=== PATIENT | male | born 1950 | race Caucasian/White ===

== ENCOUNTER 2023-06-12 15:57 | Emergency (ER) | payer MEDICARE, OTHER, SELFPAY ==
[2023-06-12] VITALS (20 sets, daily range): BP systolic 90–125; BP diastolic 59–81; PULSE 94–108; RESP 15–27; TEMP 37–37.1; O2SAT 88–97; BMI 23.1
--- NOTE | 2023-06-12 16:07 | CT_ITS ---
The [address] [address] Patient Name: ALFRED POOL MRN: [id number] date: 1950 Sex: M Assigned Patient Location: ER Current Patient Location: ER Accession/Order Number: [id number] Exam Date: 06/12/2023 16:30 Report Date: 06/12/2023 17:15 At the request of: SIRIA KIDD Procedure: CT head/brain wo con CT head/brain wo con, CT cervical spine wo con, 06/12/2023 4:30 PM EST INDICATION: fall COMPARISON: There is no appropriate prior study for comparison. TECHNIQUE: Axial images of 3 mm are obtained from the base of the skull to vertex completed with Axial images of 2 mm are obtained from base of skull to T2 without contrast. Dose reduction techniques were achieved by using automated exposure control and/or adjustment of mA and/or kV according to patient size and/or use of iterative reconstruction technique. FINDINGS: There is status post left frontal cranioplasty with postoperative changes and fluid collection externally measuring approximately 5.2 x 1.2 cm. Left frontal encephalomalacia is noted likely due to prior intervention. The cerebral and cerebellar sulci as well as ventricular system are appropriate for age. There is no intracranial mass, mass effect, midline shift, intra or extra-axial fluid collection. No acute territorial infarction or hemorrhage is noted. Periventricular and centrum semiovale hypodensities are most likely consistent with microvascular ischemic changes. The visualized portions of orbits, mastoid air cells as well as paranasal sinuses are unremarkable. There is no suspicious osteolytic or osteoblastic lesion. No acute fracture or dislocation is noted. Multilevel degenerative changes of cervical spine are noted. Right upper lobe 1.9 cm spiculated lesion is noted. CT/CT head/brain wo con IMPRESSION: No acute intracranial process is identified. No acute fracture. Right upper lobe spiculated lesion suspicious for malignancy versus scar. A CT of the chest is recommended for further evaluation. Electronically authenticated by: PETTY FALL Date: 06/12/2023 17:15
--- NOTE | 2023-06-12 16:07 | CT_ITS ---
The [address] [address] Patient Name: ALFRED POOL MRN: [id number] date: 1950 Sex: M Assigned Patient Location: ER Current Patient Location: ER Accession/Order Number: [id number] Exam Date: 06/12/2023 16:30 Report Date: 06/12/2023 17:15 At the request of: SIRIA KIDD Procedure: CT cervical spine wo con CT head/brain wo con, CT cervical spine wo con, 06/12/2023 4:30 PM EST INDICATION: fall COMPARISON: There is no appropriate prior study for comparison. TECHNIQUE: Axial images of 3 mm are obtained from the base of the skull to vertex completed with Axial images of 2 mm are obtained from base of skull to T2 without contrast. Dose reduction techniques were achieved by using automated exposure control and/or adjustment of mA and/or kV according to patient size and/or use of iterative reconstruction technique. FINDINGS: There is status post left frontal cranioplasty with postoperative changes and fluid collection externally measuring approximately 5.2 x 1.2 cm. Left frontal encephalomalacia is noted likely due to prior intervention. The cerebral and cerebellar sulci as well as ventricular system are appropriate for age. There is no intracranial mass, mass effect, midline shift, intra or extra-axial fluid collection. No acute territorial infarction or hemorrhage is noted. Periventricular and centrum semiovale hypodensities are most likely consistent with microvascular ischemic changes. The visualized portions of orbits, mastoid air cells as well as paranasal sinuses are unremarkable. There is no suspicious osteolytic or osteoblastic lesion. No acute fracture or dislocation is noted. Multilevel degenerative changes of cervical spine are noted. Right upper lobe 1.9 cm spiculated lesion is noted. CT/CT cervical spine wo con IMPRESSION: No acute intracranial process is identified. No acute fracture. Right upper lobe spiculated lesion suspicious for malignancy versus scar. A CT of the chest is recommended for further evaluation. Electronically authenticated by: PETTY FALL Date: 06/12/2023 17:15
--- NOTE | 2023-06-12 16:14 | ECG_ITS ---
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
--- NOTE | 2023-06-12 16:31 | ED_ITS ---
HPI - Fall General Chief Complaint: Fall Stated Complaint: FALL-HEAD INJURY Time Seen by Provider: 06/12/23 16:07 Source: patient Mode of arrival: ambulance Limitations: no limitations History of Present Illness HPI Narrative: 72-year-old male presents to the emergency room by squad. Patient was a fall from home. Patient was discharged home from the physical therapist facility at [facility] yesterday. Caregivers were caring for him at home today when patient stood and leaned forward and fell. He did not strike his head or lose consciousness. Patient is a recent craniotomy patient recovering. He had a history of lung cancer with metastases to the brain. In March 2023 he had a partial craniotomy of the tumor. In May the area in the brain went to emergency room became infected. Patient's been treated at [facility] for the last several weeks due to that infection and that was transferred to the physical therapy facility and discharged from their facility yesterday. He does have an IV port continues to receive IV vancomycin at home. he is not febrile. This was an accidental fall at home.She is alert and oriented at his baseline. Related Data Allergies Allergy/AdvReac Type Severity Reaction Status Date / Time No Known Drug Allergies Allergy Verified 06/12/23 16:05 Review of Systems ROS Narrative All Systems are negative except as noted/marked.All systems reviewed and otherwise negative Exam Narrative Exam Narrative: P Nurses note and vital signs reviewed and patient is not hypoxic. General: The patient appears well and in no apparent distress. Patient is resting comfortably on cart. Skin: Warm, dry, no pallor noted. Right cheek, facial abrasion Head: Normocephalic, atraumatic healing scar across the parietal region of his scalp Eye: Normal conjunctiva, no drainage, EOMI. PERRL Ears, Nose, Mouth, and Throat: oral mucosa is moist. Nares patent. Mouth without vesicles. Ear canals patent. Tm's without Erythema Cardiovascular: Regular Rate and Rhythm Respiratory: Patient is in no distress, no accessory muscle use, lungs are clear to auscultation, no wheezing, rales or rhonchi Back: non-tender, no CVA tenderness bilaterally to percussion. GI: Normal bowel sounds, no tenderness to palpation, no masses appreciated. No rebound, guarding, or rigidity noted. Musculoskeletal: The patient has no evidence of calf tenderness, no pitting edema, symmetrical pulses noted bilaterally Neurological: Oriented to place and self at his baseline Psychiatric: Cooperative Constitutional Vital Signs, click to edit/add: Last Vital Signs Temp 98.6 F 06/12/23 16:03 Pulse 96 H 06/12/23 17:40 Resp 20 06/12/23 17:40 BP 112/81 06/12/23 17:30 Pulse Ox 95 06/12/23 17:40 O2 Del Method Room Air 06/12/23 16:29 Course Vital Signs Vital signs: Vital Signs Blood Pressure 90/70 06/12/23 16:00 Temperature 98.6 F 06/12/23 16:03 Pulse Rate 96 H 06/12/23 17:40 Respiratory Rate 20 06/12/23 17:40 Blood Pressure 112/81 06/12/23 17:30 Pulse Oximetry 95 06/12/23 17:40 Oxygen Delivery Method Room Air 06/12/23 16:29 MDM - Fall MDM Narrative Medical decision making narrative: Patient presents emergency room by squad after a fall at home. Caregivers were helping him stand he fell forward. He did not strike his head. Patient brought here for evaluation recent craniotomy and an infection in the post craniotomy region of his brain. He was discharged home yesterday from rehab facility. Patient and family members are here. Patient is alert and oriented at his [facility] After his fall today. He is eating and drinking well here in emergency room IV fluids have been given here. Labwork, head and neck CT were read and showed nothing acute. He is currently seeing oncology in [place]. He has an appointment with them on Wednesday. Family members believe he can be discharged back to home, he does have 24-hour care at home while he is recovering. Patient's eating a meal here and looks well. He does want to go home. Family members agree. Differential Diagnosis Differential diagnosis: Likely syncope Medical Records Attestation: I reviewed the patient's medical records. Lab Data Attestation: I reviewed the patient's lab results. Labs: Lab Results 06/12/23 Range/Units 16:50 WBC 8.3 (4.0-11.0) 10^3/uL RBC 3.95 L (4.70-6.10) 10^6/uL Hgb 11.6 L (14.0-18.0) g/dL Hct 36.0 L (42.0-54.0) % MCV 91.1 (80.0-94.0) fL MCH 29.4 (25.9-34.0) pg MCHC 32.2 (29.9-35.2) g/dL RDW 18.0 H (11.0-15.0) % Plt Count 86 L (150-450) 10^3/uL MPV 9.3 L (9.5-13.5) fL Seg Neuts % (Manual) 72.0 Band Neutrophils % 4.0 (0-5) % Lymphocytes % (Manual) 18.0 L (20.5-60.0) % Monocytes % (Manual) 4.0 (1.7-12.0) % Eosinophils % (Manual) 1.0 (0.9-7.0) % Basophils % (Manual) 1.0 (0.2-2.0) % Neutrophils # (Manual) 5.97 (1.4-6.5) 10^3/uL Band Neutrophils # 0.3 (0.0-0.3) 10^3/uL Lymphocytes # (Manual) 1.49 (1.20-3.80) 10^3/uL Monocytes # (Manual) 0.33 (0.30-0.80) 10^3/uL Eosinophils # (Manual) 0.08 (0.00-0.70) 10^3/uL Basophils # (Manual) 0.08 (0.00-0.10) 10^3/uL Anisocytosis 2+ Sodium 138 (136-145) mmol/L Potassium 3.8 (3.5-5.1) mmol/L Chloride 103 (98-107) mmol/L Carbon Dioxide 24.7 (21.0-32.0) mmol/L Anion Gap 14.1 BUN 13.0 (7.0-18.0) mg/dL Creatinine 1.06 (0.70-1.30) mg/dL Est GFR ( Amer) >60 (>=60) Est GFR (Non-Af Amer) >60 (>=60) BUN/Creatinine Ratio 12.3 Glucose 121 H (74-106) mg/dL Calcium 8.3 L (8.5-10.1) mg/dL Total Bilirubin 1.0 (0.2-1.0) mg/dL AST <5 L (15-37) U/L ALT 48 (16-63) U/L Alkaline Phosphatase 94 (46-116) U/L Total Protein 5.5 L (6.4-8.2) g/dL Albumin 2.6 L (3.4-5.0) g/dL Globulin 2.9 g/dL Albumin/Globulin Ratio 0.[address] scan - head: My impression: INDICATION: fall COMPARISON: There is no appropriate prior study for comparison. TECHNIQUE: Axial images of 3 mm are obtained from the base of the skull to vertex completed with Axial images of 2 mm are obtained from base of skull to T2 without contrast. Dose reduction techniques were achieved by using automated exposure control and/or adjustment of mA and/or kV according to patient size and/or use of iterative reconstruction technique. FINDINGS: There is status post left frontal cranioplasty with postoperative changes and fluid collection externally measuring approximately 5.2 x 1.2 cm. Left frontal encephalomalacia is noted likely due to prior intervention. The cerebral and cerebellar sulci as well as ventricular system are appropriate for age. There is no intracranial mass, mass effect, midline shift, intra or extra-axial fluid collection. No acute territorial infarction or hemorrhage is noted. Periventricular and centrum semiovale hypodensities are most likely consistent with microvascular ischemic changes. The visualized portions of orbits, mastoid air cells as well as paranasal sinuses are unremarkable. There is no suspicious osteolytic or osteoblastic lesion. No acute fracture or dislocation is noted. Multilevel degenerative changes of cervical spine are noted. Right upper lobe 1.9 cm spiculated lesion is noted. IMPRESSION: No acute intracranial process is identified. No acute fracture. Right upper lobe spiculated lesion suspicious for malignancy versus scar. A CT of the chest is recommended for further evaluation. Electronically authenticated by: PETTY FALL Date: 06/12/2023 17:15 ECG Data Attestation: ?I have reviewed the pertinent ECG results. Interpretation: EKG shows normal sinus rhythm rate 99 bpm QR interval 104 ms QR duration 86 ms,no STEMI Discharge Plan Discharge Chief Complaint: Fall Clinical Impression: Abrasion of face, Fall Patient Disposition: Home, Self-Care Time of Disposition Decision: 18:16 Condition: Good Instructions: Abrasion (ED), Fall Prevention (ED) Stand Alone Forms: Portal Instructions Referrals: Physician,Non-Staff, MD [Primary Care Provider] - 1 week
[2023-06-12 17:00] LABS: Hemoglobin 11.6 g/dL (14.0-18.0); Mean Corpuscular HGB Conc 32.2 g/dL (29.9-35.2); Mean Corpuscular Hemoglobin 29.4 pg (25.9-34.0); Mean Corpuscular Volume 91.1 fL (80.0-94.0); Mean Platelet Volume 9.3 fL (9.5-13.5); Platelet Count 86 10^3/uL (150-450); Red Blood Count 3.95 10^6/uL (4.70-6.10); White Blood Count 8.3 10^3/uL (4.0-11.0)
[2023-06-12 17:16] LABS: Alanine Aminotransferase 48 U/L (16-63); Albumin Globulin Ratio 0.9; Albumin Level 2.6 g/dL (3.4-5.0); Alkaline Phosphatase 94 U/L (46-116); Anion Gap 14.1; Aspartate Amino Transferase <5 U/L (15-37); BUN Creatinine Ratio 12.3; Band Neutrophils Absolute 0.3 10^3/uL (0.0-0.3); Basophils Abs Manual 0.08 10^3/uL (0.00-0.10); Calcium 8.3 mg/dL (8.5-10.1); Carbon Dioxide 24.7 mmol/L (21.0-32.0); Chloride 103 mmol/L (98-107); Estimated GFR (African America >60 (>=60); Estimated GFR (Non-African Ame >60 (>=60); Globulin 2.9 g/dL; Glucose 121 mg/dL (74-106); Lymphocytes Absolute Manual 1.49 10^3/uL (1.20-3.80); Monocytes Absolute Manual 0.33 10^3/uL (0.30-0.80); Potassium 3.8 mmol/L (3.5-5.1); Sodium 138 mmol/L (136-145); Total Protein 5.5 g/dL (6.4-8.2)
[2023-06-12 17:17] LABS: Anisocytosis 2+; Eosinophils Absolute Manual 0.08 10^3/uL (0.00-0.70); Segmented Neut Absolute Manual 5.97 10^3/uL (1.4-6.5)
[2023-06-12] MEDS: DEXAMETHASONE SOD PHOS 10 MG/ML VIAL 2 MG IV (17:21)
[2023-06-12] MEDS: RIVAROXABAN 10 MG TABLET 20 MG PO (17:21)
[2023-06-12] MEDS: 0.9 % SODIUM CHLORIDE 1,000 ML 1000 ML IV (17:49)
[2023-06-12] MEDS: ONDANSETRON PF 4 MG/2 ML VIAL IV (17:49)
== END 2023-06-12 19:06 | disposition home or self-care (01) ==
PROVIDERS: Physician Assistant; Emergency Provider Emergency Medicine
DX: S00.81XA Abrasion of other part of head, initial encounter (principal); W18.30XA Fall on same level, unspecified, initial encounter; Z85.118 Personal history of other malignant neoplasm of bronchus and lung; Z85.841 Personal history of malignant neoplasm of brain; Z98.890 Other specified postprocedural states
CPT/HCPCS: 36415; 70450; 72125; 80053; 85027; 93005; 96374; 96375; 99285; J1100

== ENCOUNTER 2024-02-10 11:58 | Emergency (ER) | payer MEDICARE, OTHER, SELFPAY ==
[2024-02-10] VITALS (106 sets, daily range): BP systolic 68–112; BP diastolic 40–79; PULSE 103–138; TEMP 36.4; O2SAT 88–100
--- NOTE | 2024-02-10 12:01 | XR_ITS ---
The [address] [address] Patient Name: ALFRED POOL MRN: [id number] date: 1950 Sex: M Assigned Patient Location: ER Current Patient Location: ER Accession/Order Number: [id number] Exam Date: 02/10/2024 12:38 Report Date: 02/10/2024 13:31 At the request of: JASON CRAIG Procedure: XR chest 1V EXAMINATION: XR chest 1V HISTORY: weak COMPARISON: No relevant comparison available. TECHNIQUE: AP portable FINDINGS: LUNGS: No significant pulmonary parenchymal abnormalities. Low lung volumes VASCULATURE: No increased pulmonary vasculature. PLEURA: No pneumothorax, effusion, or pleural thickening. CARDIAC: No cardiomegaly or cardiac silhouette abnormality. MEDIASTINUM: No visible mass or adenopathy. Left single lumen Port-A-Cath tip projects over the right atrium BONES: No fracture or visible bone lesion. OTHER: Negative. XR/XR chest 1V IMPRESSION: Low volume exam, clear lungs Electronically authenticated by: VALENTINA MASON Date: 02/10/2024 13:31
--- NOTE | 2024-02-10 12:01 | CT_ITS ---
The [address] [address] Patient Name: ALFRED POOL MRN: [id number] date: 1950 Sex: M Assigned Patient Location: ER Current Patient Location: ER Accession/Order Number: [id number] Exam Date: 02/10/2024 12:38 Report Date: 02/10/2024 13:30 At the request of: JASON CRAIG Procedure: CT head/brain wo con EXAMINATION: CT head/brain wo con, 02/10/2024 12:38 PM EDT HISTORY: weak, hx lung cancer COMPARISON: 06/12/2023 TECHNIQUE: CT scan of the head was performed without IV contrast. CT dose reduction technique was used, including Automated Exposure Control. FINDINGS: BRAIN: Stable left frontal cranioplasty. Interval progression of left frontal encephalomalacia. Moderate white matter hypoattenuation likely chronic small vessel ischemic changes CSF SPACES: No hydrocephalus, subarachnoid hemorrhage, or mass. Appropriate for age. SKULL: No fracture, mass, or other significant visible lesion. SINUSES: No significant mucosal thickening or fluid on the limited views. ORBITS: No appreciable abnormality on the limited views. OTHER: Negative CT/CT head/brain wo con IMPRESSION: Progression of left frontal encephalomalacia Progression of white matter disease likely chronic small vessel ischemic change Electronically authenticated by: VALENTINA MASON Date: 02/10/2024 13:30
--- NOTE | 2024-02-10 12:01 | ECG_ITS ---
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
--- NOTE | 2024-02-10 12:15 | PC.NURSE ---
Patient arrives via EMS after his daughte checked on him and found him still in bed. patient with history of lung cancer, currently on oral chemo, and mets to the brain which were removed with surgery. patient did develop infection after brain surgery. daughter endorses that patient has had diarrhea since january and has been seen at [facility] for this. patient reports he has not eaten today. blood pressure noted to be very low upon arrival, iv fluids started and patient placed in trendelenburg. physician aware of blood pressure.
--- NOTE | 2024-02-10 12:21 | ED.GENADUL1 ---
HPI HPI - General Adult General Chief complaint: Weakness Stated complaint: GENERAL WEAKNESS Time Seen by Provider: 02/10/24 12:00 Source: patient Mode of arrival: ambulance History of Present Illness HPI narrative: 73-year-old male presents for generalized weakness. His daughter went to check on him today and the patient had not been out of bed yet. She seemed weak. He reported that he had been having frequent episodes of diarrhea last night, no blood. The daughter states that it was foul-smelling. He has been having some issues with diarrhea on and off for weeks or months. He has a history of lung cancer with metastasis. He did not have fever or vomiting. The daughter called the paramedics and they transported him here. Related Data Allergies Allergy/AdvReac Type Severity Reaction Status Date / Time No Known Drug Allergies Allergy Verified 06/12/23 16:05 Opioid HPI Opioid Management Most Recent Opioid Data: No Data to Display Review of Systems ROS Narrative A ten point review of systems is negative except as noted above. Exam Narrative Exam Narrative: Nurses note and vital signs reviewed and patient is not hypoxic. General: The patient appears well and in no apparent distress. Patient is resting comfortably on cart. Skin: Warm, dry, no pallor noted. There is no rash noted. Head: Normocephalic, atraumatic Eye: Normal conjunctiva, no drainage Ears, Nose, Mouth, and Throat: oral mucosa is moist. Nares patent. Cardiovascular: Regular Rate and Rhythm, tachycardic Respiratory: Patient is in no distress, no accessory muscle use, lungs are clear to auscultation, no wheezing, rales or rhonchi GI: Soft and nondistended. He does not seem to have tenderness on palpation. Musculoskeletal: The patient has no evidence of calf tenderness, no pitting edema, symmetrical pulses noted bilaterally Neurological: Awake alert and oriented Psychiatric: Cooperative Constitutional Vital Signs, click to edit/add: Last Vital Signs Temp 97.6 F 02/10/24 12:00 Pulse 109 H 02/10/24 18:34 Resp 21 H 02/10/24 18:34 BP 102/72 02/10/24 18:34 Pulse Ox 99 02/10/24 18:34 O2 Del Method Nasal Cannula 02/10/24 12:00 O2 Flow Rate 2 02/10/24 12:00 Course Vital Signs Vital signs: Vital Signs Temperature 97.6 F 02/10/24 12:00 Pulse Rate 138 H 02/10/24 12:00 Respiratory Rate 22 H 02/10/24 12:00 Blood Pressure 78/40 L 02/10/24 12:00 Pulse Oximetry 92 L 02/10/24 12:00 Oxygen Delivery Method Nasal Cannula 02/10/24 12:00 Oxygen Delivery Flow Rate 2 02/10/24 12:00 Temperature 97.6 F 02/10/24 12:00 Pulse Rate 109 H 02/10/24 18:34 Respiratory Rate 21 H 02/10/24 18:34 Blood Pressure 102/72 02/10/24 18:34 Pulse Oximetry 99 02/10/24 18:34 Oxygen Delivery Method Nasal Cannula 02/10/24 12:00 Oxygen Delivery Flow Rate 2 02/10/24 12:00 Medical Decision Making MDM Narrative Medical decision making narrative: The patient presented with hypotension. It appears to be secondary to volume depletion, his BUN and creatinine are elevated above baseline. WBC also elevated and urinalysis suggest the possibility of UTI. Chest x-ray shows no infiltrate. CT of the abdomen is pending and the patient is signed out to Dr. Rinaldi at change of shift. Initial lactic acid was 12, repeat was 7. He was given 3 L of IV fluid and his blood pressure has improved into the 90s systolic range. It was initially in the 70s. At approximately 6:40 PM the patient had a bowel movement here which was bloody. That is the first time that this has happened. He had had diarrhea at home without blood and his daughter had been there and seen the diarrhea and there was no blood. Differential Diagnosis Differential Diagnosis: Volume depletion, AZRA, UTI, pneumonia, intra-abdominal infection Lab Data Lab results reviewed: Yes I reviewed the patient's lab results Labs: Lab Results 02/10/24 02/10/24 02/10/24 Range/Units 12:05 12:20 14:29 WBC 27.9 H (4.0-11.0) 10^3/uL RBC 5.76 (4.70-6.10) 10^6/uL Hgb 16.4 (14.0-18.0) g/dL Hct 51.4 (42.0-54.0) % MCV 89.2 (80.0-94.0) fL MCH 28.5 (25.9-34.0) pg MCHC 31.9 (29.9-35.2) g/dL RDW 14.7 (11.0-15.0) % Plt Count 219 (150-450) 10^3/uL MPV 12.7 (9.5-13.5) fL Seg Neuts % (Manual) 74.0 (43.0-75.0) Band Neutrophils % 9.0 H (0-5) % Lymphocytes % (Manual) 8.0 L (20.5-60.0) % Monocytes % (Manual) 8.0 (1.7-12.0) % Eosinophils % (Manual) 1.0 (0.9-7.0) % Basophils % (Manual) 0.0 L (0.2-2.0) % Neutrophils # (Manual) 20.64 H (1.4-6.5) 10^3/uL Band Neutrophils # 2.5 H (0.0-0.3) 10^3/uL Lymphocytes # (Manual) 2.23 (1.20-3.80) 10^3/uL Monocytes # (Manual) 2.23 H (0.30-0.80) 10^3/uL Eosinophils # (Manual) 0.27 (0.00-0.70) 10^3/uL Basophils # (Manual) 0.00 (0.00-0.10) 10^3/uL Sodium 143 (136-145) mmol/L Potassium 2.4 L* (3.5-5.1) mmol/L Chloride 110 H (98-107) mmol/L Carbon Dioxide 14.5 L (21.0-32.0) mmol/L Anion Gap 20.9 BUN 20.0 H (7.0-18.0) mg/dL Creatinine 1.91 H (0.70-1.30) mg/dL Est GFR ( Amer) 42 L (>=60) Est GFR (Non-Af Amer) 35 L (>=60) BUN/Creatinine Ratio 10.5 Glucose 206 H (74-106) mg/dL Lactate 12.0 H* (0.4-2.0) mmol/L Calcium 7.1 L (8.5-10.1) mg/dL Troponin I High Sens 24.8 (4.0-76.1) pg/mL Urine Color Dk yellow (YELLOW) Urine Clarity Clear (CLEAR) Urine pH Color interference A (5.0-9.0) Ur Specific [place] >=1.030 A (1.005-1.025) Urine Protein Color interference A (NEG/TRACE) mg/dL Urine Glucose (UA) Color interference A (NEGATIVE) mg/dL Urine Ketones Color interference A (NEGATIVE) mg/dL Urine Occult Blood Color interference A (NEGATIVE) Urine Nitrite Color interference A (NEGATIVE) Urine Bilirubin Color interference A (NEGATIVE) Urine Urobilinogen Color interference A (0.2-1.0) EU/dL Ur Leukocyte Esterase Color interference A (NEGATIVE) Urine RBC 20-50 A (0-2) #/HPF Urine WBC 5-10 A (NONE SEEN) #/HPF Ur Squamous Epith Cells Few A (NONE/RARE) #/LPF Urine Crystals Seen A (None Seen) #/HPF Calcium Oxalate Crystal Many Urine Bacteria Small A (NONE SEEN) #/HPF Urine Casts Seen A (NONE SEEN) #/LPF Hyaline Casts Moderate Fine Granular Casts Rare Urine Mucus Large A (NONE SEEN) Ur Culture Indicated? Yes 02/10/24 Range/Units 16:50 WBC (4.0-11.0) 10^3/uL RBC (4.70-6.10) 10^6/uL Hgb (14.0-18.0) g/dL Hct (42.0-54.0) % MCV (80.0-94.0) fL MCH (25.9-34.0) pg MCHC (29.9-35.2) g/dL RDW (11.0-15.0) % Plt Count (150-450) 10^3/uL MPV (9.5-13.5) fL Seg Neuts % (Manual) (43.0-75.0) Band Neutrophils % (0-5) % Lymphocytes % (Manual) (20.5-60.0) % Monocytes % (Manual) (1.7-12.0) % Eosinophils % (Manual) (0.9-7.0) % Basophils % (Manual) (0.2-2.0) % Neutrophils # (Manual) (1.4-6.5) 10^3/uL Band Neutrophils # (0.0-0.3) 10^3/uL Lymphocytes # (Manual) (1.20-3.80) 10^3/uL Monocytes # (Manual) (0.30-0.80) 10^3/uL Eosinophils # (Manual) (0.00-0.70) 10^3/uL Basophils # (Manual) (0.00-0.10) 10^3/uL Sodium (136-145) mmol/L Potassium (3.5-5.1) mmol/L Chloride (98-107) mmol/L Carbon Dioxide (21.0-32.0) mmol/L Anion Gap BUN (7.0-18.0) mg/dL Creatinine (0.70-1.30) mg/dL Est GFR ( Amer) (>=60) Est GFR (Non-Af Amer) (>=60) BUN/Creatinine Ratio Glucose (74-106) mg/dL Lactate 7.1 H* (0.4-2.0) mmol/L Calcium (8.5-10.1) mg/dL Troponin I High Sens (4.0-76.1) pg/mL Urine Color (YELLOW) Urine Clarity (CLEAR) Urine pH (5.0-9.0) Ur Specific [place] (1.005-1.025) Urine Protein (NEG/TRACE) mg/dL Urine Glucose (UA) (NEGATIVE) mg/dL Urine Ketones (NEGATIVE) mg/dL Urine Occult Blood (NEGATIVE) Urine Nitrite (NEGATIVE) Urine Bilirubin (NEGATIVE) Urine Urobilinogen (0.2-1.0) EU/dL Ur Leukocyte Esterase (NEGATIVE) Urine RBC (0-2) #/HPF Urine WBC (NONE SEEN) #/HPF Ur Squamous Epith Cells (NONE/RARE) #/LPF Urine Crystals (None Seen) #/HPF Calcium Oxalate Crystal Urine Bacteria (NONE SEEN) #/HPF Urine Casts (NONE SEEN) #/LPF Hyaline Casts Fine Granular Casts Urine Mucus (NONE SEEN) Ur Culture Indicated? Imaging Data Chest x-ray: Radiologist's impression: ITS Impressions Chest X-Ray 02/10/24 12:01 IMPRESSION: Low volume exam, clear lungs Electronically authenticated by: VALENTINA MASON Date: 02/10/2024 13:[address] 02/10/24 12:01 IMPRESSION: Progression of left frontal encephalomalacia Progression of white matter disease likely chronic small vessel ischemic change Electronically authenticated by: VALENTINA MASON Date: 02/10/2024 13:30 ECG Data Attestation: I personally reviewed and interpreted this ECG as follows: (EKG on my interpretation shows sinus tachycardia with a rate of 123.) Critical Care Time Critical Care Time Critical Care Time: Yes Total Critical Care Time: 95 Attestation: Due to the high probability of sudden and clinically significant deterioration in the patient's condition he/she required the highest level of my preparedness to intervene urgently I provided critical care time including documentation time, medication orders and management, reevaluation, vital sign assessment, ordering and reviewing of lab tests, ordering and reviewing of x-ray studies, and admission orders. Aggregate critical care time is 95 minutes including only time during which I was engaged in work directly related to his/her care and did not include time spent treating other patients simultaneously. Discharge Plan Discharge Patient Disposition: Still a Patient
[2024-02-10 12:43] LABS: Hematocrit 51.4 % (42.0-54.0); Hemoglobin 16.4 g/dL (14.0-18.0); Mean Corpuscular HGB Conc 31.9 g/dL (29.9-35.2); Mean Corpuscular Hemoglobin 28.5 pg (25.9-34.0); Mean Corpuscular Volume 89.2 fL (80.0-94.0); Mean Platelet Volume 12.7 fL (9.5-13.5); Platelet Count 219 10^3/uL (150-450); Red Blood Count 5.76 10^6/uL (4.70-6.10); Red Cell Distribution Width 14.7 % (11.0-15.0); White Blood Count 27.9 10^3/uL (4.0-11.0)
[2024-02-10] MEDS: 0.9 % SODIUM CHLORIDE 1,000 ML 1000 ML IV ×2 (12:55→13:28)
[2024-02-10 12:57] LABS: Anion Gap 20.9; BUN Creatinine Ratio 10.5; Calcium 7.1 mg/dL (8.5-10.1); Carbon Dioxide 14.5 mmol/L (21.0-32.0); Chloride 110 mmol/L (98-107); Estimated GFR (African America 42 (>=60); Estimated GFR (Non-African Ame 35 (>=60); Glucose 206 mg/dL (74-106); Sodium 143 mmol/L (136-145); Troponin I High Sensitivity 24.8 pg/mL (4.0-76.1)
[2024-02-10 13:01] LABS: Potassium 2.4 mmol/L (3.5-5.1)
[2024-02-10 13:08] LABS: Band Neutrophils Absolute 2.5 10^3/uL (0.0-0.3); Eosinophils Absolute Manual 0.27 10^3/uL (0.00-0.70); Lymphocytes Absolute Manual 2.23 10^3/uL (1.20-3.80); Monocytes Absolute Manual 2.23 10^3/uL (0.30-0.80); Segmented Neut Absolute Manual 20.64 10^3/uL (1.4-6.5)
[2024-02-10] MEDS: POTASSIUM CHLORIDE 40 MEQ in 0.9 % SODIUM CHLORIDE 250 ML 67.5 MEQ IV (13:37)
[2024-02-10 15:16] LABS: Clarity Urine CLEAR (CLEAR); Specific Gravity Urine >=1.030 (1.005-1.025)
[2024-02-10 15:17] LABS: Color Urine DK YELLOW (YELLOW)
[2024-02-10 15:18] LABS: Bilirubin Urine COLOR INTERFERENCE (NEGATIVE); Blood Urine COLOR INTERFERENCE (NEGATIVE); Glucose Urine UA COLOR INTERFERENCE mg/dL (NEGATIVE); Ketones Urine COLOR INTERFERENCE mg/dL (NEGATIVE); Leukocyte Esterase Urine COLOR INTERFERENCE (NEGATIVE); Nitrite Urine COLOR INTERFERENCE (NEGATIVE); Protein Urine COLOR INTERFERENCE mg/dL (NEG/TRACE); Urobilinogen Urine COLOR INTERFERENCE EU/dL (0.2-1.0); pH Urine COLOR INTERFERENCE (5.0-9.0)
[2024-02-10] MEDS: LIDOCAINE 2% JELLY 10 ML UR (15:20)
[2024-02-10 15:43] LABS: RBC Urine 20-50 #/HPF (0-2)
[2024-02-10 15:46] LABS: Bacteria Urine SMALL #/HPF (NONE SEEN); Mucus Urine LARGE (NONE SEEN); Squamous Epithelial Cell Urine FEW #/LPF (NONE/RARE)
[2024-02-10 15:47] LABS: Calcium Oxalate Crystals Urine MANY; Cast Seen? SEEN #/LPF (NONE SEEN); Crystals Seen? Seen #/HPF (None Seen); Fine Granular Casts Urine RARE; Hyaline Casts Urine MODERATE
[2024-02-10 15:48] LABS: Urine Culture Indicated YES
[2024-02-10] MEDS: 0.9 % SODIUM CHLORIDE 1,000 ML 200 ML IV ×2 (15:52→20:59)
--- NOTE | 2024-02-10 15:58 | CT_ITS ---
[address] [address] Patient Name: ALFRED POOL MRN: [id number] date: 1950 Sex: M Assigned Patient Location: ER Current Patient Location: .MAIN Accession/Order Number: [id number] Exam Date: 02/10/2024 16:18 Report Date: 02/10/2024 19:55 At the request of: JASON CRAIG Procedure: CT abdomen pelvis w con CT ABDOMEN AND PELVIS WITH CONTRAST: INDICATION: Shortness of breath, weakness. COMPARISON: Chest radiograph 02/10/2024. TECHNIQUE: Helical CT images of the abdomen and pelvis were obtained after the administration of intravenous contrast. Dose reduction techniques were achieved by using automated exposure control and/or adjustment of mA and/or kV according to patient size and/or use of iterative reconstruction technique. FINDINGS: LOWER CHEST: The visualized aortic root is slightly dilated at 4.1 cm. There is mild bibasilar atelectasis. LIVER: There is moderate fatty infiltration. There is a enhancing lesion in the hepatic dome in segment 8 on image 15 series 3 measuring 10 mm. GALLBLADDER AND BILIARY SYSTEM: Normal. SPLEEN: Several calcified granulomas. PANCREAS: Moderate fatty replacement. ADRENAL GLANDS: Severely atrophic bilaterally. KIDNEYS AND URETERS: 6 mm hypodensity in the lower pole of the left kidney suggestive of cysts but too small to characterize. 7 mm hypodensity in the upper pole of the right kidney. 4 mm stone in the upper pole of the right kidney. Mild bilateral perinephric stranding consistent with medical renal disease. There is a 14 mm ill-defined hypodense focus in the upper pole of the right kidney best seen on image 64 series 5 with a somewhat wedge shape suspicious for pyelonephritis or an infarct. There is a similar hypodensity in the upper pole of left kidney on image 63 series 5 measuring 15 mm. 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 There is diffuse atherosclerotic calcification of the aorta, iliac and femoral arteries. RETROPERITONEUM AND LYMPH NODES: Normal, with no lymphadenopathy. GASTROINTESTINAL TRACT/MESENTERY: There is fluid within the small bowel and colon and there is evidence of mild to moderate wall thickening and mucosal hyperenhancement throughout the colon suspicious for colitis. There are small fluid collections proximal to the inguinal canals bilaterally, likely related to previous inguinal hernia repair with mesh plugs. The appendix is not visualized. BLADDER: Maxwell catheter within urinary bladder which is underdistended. REPRODUCTIVE SYSTEM: Normal prostate. BODY WALL: Normal. BONES: There are few ill-defined mixed lytic and sclerotic lesions in the thoracic and lumbar spine. For example there is a lesion at L3 which is lytic centrally with peripheral sclerosis and this measures 12 mm. There is a lytic lesion at T8 with some peripheral sclerosis measuring 11 mm. This is suspicious for metastatic disease. CT/CT abdomen pelvis w con IMPRESSION: 1. Findings consistent with an infectious, inflammatory or ischemic colitis. 2. Ill-defined wedge-shaped hypodense foci within the upper poles of the kidneys bilaterally. Differential diagnosis includes infarcts, polynephritis and less likely masses. Consider follow-up ultrasound. Small hypodensities are also seen in both kidney suggestive of cysts but too small to characterize and there is a small right renal stone. 3. 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 4. Partially visualized ascending thoracic aortic ectasia measuring 4.1 cm in diameter. 5. Enhancing focus in the dome of the liver which may represent a flash filling hemangioma or transient hepatic attenuation difference. Fatty liver is also noted. Consider MRI. 6. Findings suspicious for osseous metastatic disease. Consider follow-up PET/CT. Electronically authenticated by: VALERIA MILLAN Date: 02/10/2024 19:55
[2024-02-10] MEDS: CEFTRIAXONE 1,000 MG in 0.9 % SODIUM CHLORIDE 50 ML 100 MG IV (16:36)
[2024-02-10 17:36] LABS: Lactate/Lactic Acid 7.1 mmol/L (0.4-2.0)
[2024-02-10] MEDS: PANTOPRAZOLE SODIUM 40 MG VIAL IV (19:14)
--- NOTE | 2024-02-10 19:23 | ED_ITS ---
HPI HPI - General Adult General Chief complaint: Weakness Stated complaint: GENERAL WEAKNESS Time Seen by Provider: 02/10/24 12:00 Source: patient Mode of arrival: ambulance History of Present Illness HPI narrative: This 73-year-old male with a history of lung cancer with metastases to the brain who has had craniotomies in the past and is a [facility] patient was signed out to me at shift change. The patient presents for generalized weakness. His daughter went to see him this morning and he was in bed with a large amount of diarrhea in the bed. She denies that there was any blood at that time however while in the emergency department he had an episode of bloody diarrhea. He has been hypotensive while in the emergency department with a markedly elevated white count, markedly elevated lactic acid. 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 Patient was seen and evaluated with family at the bedside. They request transfer to [facility] as the patient is a [facility] patient. They state that he has been having diarrhea for the past month with some nausea and vomiting at times. He was admitted to [facility] at [facility] and kept overnight. At that time he was found to have a pulmonary embolism and was started on blood thinners after being placed on heparin for a bridge period. The patient denies any abdominal pain. His abdomen is soft. He is awake and alert. The family are adamant that he received 12 mg of oral prednisone because if he does not get this he starts to become extremely confused and at times combative. The patient's blood pressure was noted to be in the 70s over 50s after 3 L of normal saline and levophed was ordered and at the bedside but not given as his SBP was maintaining around 100mg. Repeat labs were ordered and his Hb dropped from 16.5 to 13.4 after the IVF. His lactic acid improved from 12 to 7 to 2.4. He did have several additional episodes of bloody diarrhea while in the ED. A call has been placed to [facility] transfer center for emergent transfer at this time. [id number]; Case discussed with [facility] at [facility]. Pt accepted for transfer. Dr Matt Baxter accepting. Critical care time 45 minutes Related Data Home Medications ?Medication ?Instructions ?Recorded ?Confirmed folic acid 1 mg tablet 02/10/24 glimepiride 2 mg tablet mg 02/10/24 omeprazole 40 mg capsule,delayed mg 02/10/24 release osimertinib 80 mg tablet (Tagrisso) 80 mg PO DAILY 02/10/24 02/10/24 prednisone 1 mg tablet mg 02/10/24 prednisone 10 mg tablet mg 02/10/24 quetiapine 25 mg tablet mg 02/10/24 rivaroxaban 20 mg tablet (Xarelto) mg 02/10/24 rosuvastatin 10 mg tablet mg 02/10/24 venlafaxine 37.5 mg mg PO 02/10/24 capsule,extended release 24 hr Allergies Allergy/AdvReac Type Severity Reaction Status Date / Time No Known Drug Allergies Allergy Verified 06/12/23 16:05 Opioid HPI Opioid Management Most Recent Opioid Data: No Data to Display Exam Constitutional Vital Signs, click to edit/add: Last Vital Signs Temp 97.6 F 02/10/24 12:00 Pulse 119 H 02/10/24 23:10 Resp 22 H 02/10/24 23:10 BP 88/76 L 02/10/24 23:00 Pulse Ox 99 02/10/24 23:10 O2 Del Method Nasal Cannula 02/10/24 12:00 O2 Flow Rate 2 02/10/24 12:00 Course Vital Signs Vital signs: Vital Signs Temperature 97.6 F 02/10/24 12:00 Pulse Rate 138 H 02/10/24 12:00 Respiratory Rate 22 H 02/10/24 12:00 Blood Pressure 78/40 L 02/10/24 12:00 Pulse Oximetry 92 L 02/10/24 12:00 Oxygen Delivery Method Nasal Cannula 02/10/24 12:00 Oxygen Delivery Flow Rate 2 02/10/24 12:00 Temperature 97.6 F 02/10/24 12:00 Pulse Rate 119 H 02/10/24 23:10 Respiratory Rate 22 H 02/10/24 23:10 Blood Pressure 88/76 L 02/10/24 23:00 Pulse Oximetry 99 02/10/24 23:10 Oxygen Delivery Method Nasal Cannula 02/10/24 12:00 Oxygen Delivery Flow Rate 2 02/10/24 12:00 Medical Decision Making Lab Data Lab results reviewed: Yes I reviewed the patient's lab results Labs: Lab Results 02/10/24 02/10/24 02/10/24 Range/Units 12:05 12:20 14:29 WBC 27.9 H (4.0-11.0) 10^3/uL RBC 5.76 (4.70-6.10) 10^6/uL Hgb 16.4 (14.0-18.0) g/dL Hct 51.4 (42.0-54.0) % MCV 89.2 (80.0-94.0) fL MCH 28.5 (25.9-34.0) pg MCHC 31.9 (29.9-35.2) g/dL RDW 14.7 (11.0-15.0) % Plt Count 219 (150-450) 10^3/uL MPV 12.7 (9.5-13.5) fL Neut % (Auto) (43.0-75.0) % Lymph % (Auto) (20.5-60.0) % Nance % (Auto) (1.7-12.0) % Eos % (Auto) (0.9-7.0) % Baso % (Auto) (0.2-2.0) % Neut # (Auto) (1.4-6.5) 10^3/uL Lymph # (Auto) (1.2-3.8) 10^3/uL Nance # (Auto) (0.3-0.8) 10^3/uL Eos # (Auto) (0.0-0.7) 10^3/uL Baso # (Auto) (0.0-0.1) 10^3/uL Abs Immat Gran (auto) (0.00-0.03) 10^3/uL Seg Neuts % (Manual) 74.0 (43.0-75.0) Band Neutrophils % 9.0 H (0-5) % Lymphocytes % (Manual) 8.0 L (20.5-60.0) % Monocytes % (Manual) 8.0 (1.7-12.0) % Eosinophils % (Manual) 1.0 (0.9-7.0) % Basophils % (Manual) 0.0 L (0.2-2.0) % Imm/Tot Granulo (auto) (0.0-0.5) % Neutrophils # (Manual) 20.64 H (1.4-6.5) 10^3/uL Band Neutrophils # 2.5 H (0.0-0.3) 10^3/uL Lymphocytes # (Manual) 2.23 (1.20-3.80) 10^3/uL Monocytes # (Manual) 2.23 H (0.30-0.80) 10^3/uL Eosinophils # (Manual) 0.27 (0.00-0.70) 10^3/uL Basophils # (Manual) 0.00 (0.00-0.10) 10^3/uL Sodium 143 (136-145) mmol/L Potassium 2.4 L* (3.5-5.1) mmol/L Chloride 110 H (98-107) mmol/L Carbon Dioxide 14.5 L (21.0-32.0) mmol/L Anion Gap 20.9 BUN 20.0 H (7.0-18.0) mg/dL Creatinine 1.91 H (0.70-1.30) mg/dL Est GFR ( Amer) 42 L (>=60) Est GFR (Non-Af Amer) 35 L (>=60) BUN/Creatinine Ratio 10.5 Glucose 206 H (74-106) mg/dL Lactate 12.0 H* (0.4-2.0) mmol/L Calcium 7.1 L (8.5-10.1) mg/dL Troponin I High Sens 24.8 (4.0-76.1) pg/mL Urine Color Dk yellow (YELLOW) Urine Clarity Clear (CLEAR) Urine pH Color interference A (5.0-9.0) Ur Specific [place] >=1.030 A (1.005-1.025) Urine Protein Color interference A (NEG/TRACE) mg/dL Urine Glucose (UA) Color interference A (NEGATIVE) mg/dL Urine Ketones Color interference A (NEGATIVE) mg/dL Urine Occult Blood Color interference A (NEGATIVE) Urine Nitrite Color interference A (NEGATIVE) Urine Bilirubin Color interference A (NEGATIVE) Urine Urobilinogen Color interference A (0.2-1.0) EU/dL Ur Leukocyte Esterase Color interference A (NEGATIVE) Urine RBC 20-50 A (0-2) #/HPF Urine WBC 5-10 A (NONE SEEN) #/HPF Ur Squamous Epith Cells Few A (NONE/RARE) #/LPF Urine Crystals Seen A (None Seen) #/HPF Calcium Oxalate Crystal Many Urine Bacteria Small A (NONE SEEN) #/HPF Urine Casts Seen A (NONE SEEN) #/LPF Hyaline Casts Moderate Fine Granular Casts Rare Urine Mucus Large A (NONE SEEN) Ur Culture Indicated? Yes 02/10/24 02/10/24 Range/Units 16:50 22:35 WBC 19.0 H (4.0-11.0) 10^3/uL RBC 4.79 (4.70-6.10) 10^6/uL Hgb 13.5 L (14.0-18.0) g/dL Hct 42.1 (42.0-54.0) % MCV 87.9 (80.0-94.0) fL MCH 28.2 (25.9-34.0) pg MCHC 32.1 (29.9-35.2) g/dL RDW 14.9 (11.0-15.0) % Plt Count 142 L (150-450) 10^3/uL MPV 12.2 (9.5-13.5) fL Neut % (Auto) 83.7 H (43.0-75.0) % Lymph % (Auto) 4.5 L (20.5-60.0) % Nance % (Auto) 8.5 (1.7-12.0) % Eos % (Auto) 2.4 (0.9-7.0) % Baso % (Auto) 0.6 (0.2-2.0) % Neut # (Auto) 15.9 H (1.4-6.5) 10^3/uL Lymph # (Auto) 0.9 L (1.2-3.8) 10^3/uL Nance # (Auto) 1.6 H (0.3-0.8) 10^3/uL Eos # (Auto) 0.5 (0.0-0.7) 10^3/uL Baso # (Auto) 0.1 (0.0-0.1) 10^3/uL Abs Immat Gran (auto) 0.06 H (0.00-0.03) 10^3/uL Seg Neuts % (Manual) (43.0-75.0) Band Neutrophils % (0-5) % Lymphocytes % (Manual) (20.5-60.0) % Monocytes % (Manual) (1.7-12.0) % Eosinophils % (Manual) (0.9-7.0) % Basophils % (Manual) (0.2-2.0) % Imm/Tot Granulo (auto) 0.3 (0.0-0.5) % Neutrophils # (Manual) (1.4-6.5) 10^3/uL Band Neutrophils # (0.0-0.3) 10^3/uL Lymphocytes # (Manual) (1.20-3.80) 10^3/uL Monocytes # (Manual) (0.30-0.80) 10^3/uL Eosinophils # (Manual) (0.00-0.70) 10^3/uL Basophils # (Manual) (0.00-0.10) 10^3/uL Sodium (136-145) mmol/L Potassium (3.5-5.1) mmol/L Chloride (98-107) mmol/L Carbon Dioxide (21.0-32.0) mmol/L Anion Gap BUN (7.0-18.0) mg/dL Creatinine (0.70-1.30) mg/dL Est GFR ( Amer) (>=60) Est GFR (Non-Af Amer) (>=60) BUN/Creatinine Ratio Glucose (74-106) mg/dL Lactate 7.1 H* 2.4 H* (0.4-2.0) mmol/L Calcium (8.5-10.1) mg/dL Troponin I High Sens (4.0-76.1) pg/mL Urine Color (YELLOW) Urine Clarity (CLEAR) Urine pH (5.0-9.0) Ur Specific [place] (1.005-1.025) Urine Protein (NEG/TRACE) mg/dL Urine Glucose (UA) (NEGATIVE) mg/dL Urine Ketones (NEGATIVE) mg/dL Urine Occult Blood (NEGATIVE) Urine Nitrite (NEGATIVE) Urine Bilirubin (NEGATIVE) Urine Urobilinogen (0.2-1.0) EU/dL Ur Leukocyte Esterase (NEGATIVE) Urine RBC (0-2) #/HPF Urine WBC (NONE SEEN) #/HPF Ur Squamous Epith Cells (NONE/RARE) #/LPF Urine Crystals (None Seen) #/HPF Calcium Oxalate Crystal Urine Bacteria (NONE SEEN) #/HPF Urine Casts (NONE SEEN) #/LPF Hyaline Casts Fine Granular Casts Urine Mucus (NONE SEEN) Ur Culture Indicated? Discharge Plan Discharge Chief Complaint: Weakness Clinical Impression: Hypotension, GI bleed, Leukocytosis, Urinary tract infection, Colitis, Sepsis, Hypokalemia Patient Disposition: [facility] Time of Disposition Decision: 21:30 Condition: Serious Discharge Date/Time: 02/10/24 23:59
[2024-02-10] MEDS: PREDNISONE 5 MG TABLET 12.5 MG PO (19:53)
--- NOTE | 2024-02-10 20:15 | PC.NURSE ---
This nurse assumed care for pt Pt resting at this time, pt denies any pain or discomfort family at bedside states concern for pt taking home meds, specifically his prednisone as without his mental status declines quickly Dr. Rinaldi at bedside at this time, pt's daughter again states he needs his prednisone, this was ordered Pt repositioned in bed, given medication and an update on care plan At this time pt and his family request to be transferred to [facility] as he is an established client Pt transfer initiated Pt has fluids running at 200ml/hr through his port, Levophed was mixed and prepped to be administered but pt's pressure remained >90 systolic This was discsussed with Dr. Rinaldi, will monitor BP
[2024-02-10] MEDS: IMIPENEM/CILASTATIN SODIUM 1,000 MG in 0.9 % SODIUM CHLORIDE 100 ML 100 MG IV (20:54)
[2024-02-10 22:40] LABS: Basophils Absolute Auto 0.1 10^3/uL (0.0-0.1); Basophils Percent Auto 0.6 % (0.2-2.0); Eosinophils Absolute Auto 0.5 10^3/uL (0.0-0.7); Eosinophils Percent Auto 2.4 % (0.9-7.0); Hematocrit 42.1 % (42.0-54.0); Hemoglobin 13.5 g/dL (14.0-18.0); Immature Granulocytes Abs Auto 0.06 10^3/uL (0.00-0.03); Immature Granulocytes Pct Auto 0.3 % (0.0-0.5); Lymphocytes Absolute Auto 0.9 10^3/uL (1.2-3.8); Lymphocytes Percent Auto 4.5 % (20.5-60.0); Mean Corpuscular HGB Conc 32.1 g/dL (29.9-35.2); Mean Corpuscular Hemoglobin 28.2 pg (25.9-34.0); Mean Corpuscular Volume 87.9 fL (80.0-94.0); Mean Platelet Volume 12.2 fL (9.5-13.5); Monocytes Absolute Auto 1.6 10^3/uL (0.3-0.8); Monocytes Percent Auto 8.5 % (1.7-12.0); Neutrophils Absolute Auto 15.9 10^3/uL (1.4-6.5); Neutrophils Percent Auto 83.7 % (43.0-75.0); Platelet Count 142 10^3/uL (150-450); Red Blood Count 4.79 10^6/uL (4.70-6.10); Red Cell Distribution Width 14.9 % (11.0-15.0)
[2024-02-10 23:00] LABS: Lactate/Lactic Acid 2.4 mmol/L (0.4-2.0)
== END 2024-02-10 23:59 | disposition short-term general hospital (02) ==
PROVIDERS: Emergency Medicine; Emergency Provider Emergency Medicine
DX: A41.9 Sepsis, unspecified organism (principal); K52.9 Noninfective gastroenteritis and colitis, unspecified; E87.6 Hypokalemia; N39.0 Urinary tract infection, site not specified; D72.829 Elevated white blood cell count, unspecified; I95.9 Hypotension, unspecified; Z85.118 Personal history of other malignant neoplasm of bronchus and lung; Z85.841 Personal history of malignant neoplasm of brain
CPT/HCPCS: 36415; 51702; 70450; 71045; 74177; 80048; 81001; 83605; 84484; 85007; 85025; 85027; 87040; 87045; 87046; 87086; 87427; 87493; 93005; 96361; 96365; 96366; 96367; 96368; 96375; 99285; J0696; J0743; J3480; J7512; Q9966